=== PATIENT | female | born 2000 | race African-American/Black ===

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

== ENCOUNTER 2018-02-18 21:02 | Emergency (ER) | payer OTHER ==
[2018-02-18] MEDS ORDERED: AMOXicillin 250 MG CAP ONE (22:06)
[2018-02-18] MEDS ORDERED: Loratadine 10 MG TAB ONE (22:07)
== END 2018-02-18 22:20 | disposition home or self-care (01) ==
LOC: MADERS 21:02
DX: O99.512 Diseases of the respiratory system complicating pregnancy, second trimester (principal); J20.9 Acute bronchitis, unspecified; O99.712 Diseases of the skin and subcutaneous tissue complicating pregnancy, second trimester; L60.0 Ingrowing nail; Z3A.24 24 weeks gestation of pregnancy
CPT/HCPCS: 99283

== ENCOUNTER 2018-06-06 12:44 | Emergency (ER) | payer OTHER | END 2018-06-06 13:49 | disposition home or self-care (01) | LOC: MADERS 12:44 | DX: O46.93 Antepartum hemorrhage, unspecified, third trimester (principal); Z3A.39 39 weeks gestation of pregnancy | CPT/HCPCS: 99283 ==

== ENCOUNTER 2018-09-05 06:40 | Emergency (ER) | payer OTHER | END 2018-09-05 07:40 | disposition home or self-care (01) | LOC: MADERS 06:40 | DX: R11.0 Nausea (principal) | CPT/HCPCS: 99283 ==

== ENCOUNTER 2019-07-25 18:32 | Emergency (ER) | payer MEDICAID | END 2019-07-25 19:32 | disposition home or self-care (01) | LOC: MADERS 18:32 | DX: N94.6 Dysmenorrhea, unspecified (principal) | CPT/HCPCS: 99283 ==

== ENCOUNTER 2023-10-02 14:31 | Emergency (ER) | payer MEDICAID, SELFPAY | END 2023-10-02 16:19 | disposition home or self-care (01) | LOC: MADERS 14:31 | DX: J02.0 Streptococcal pharyngitis (principal) | CPT/HCPCS: 87430; 99283 ==

== ENCOUNTER 2023-12-15 07:39 | Emergency (ER) | payer SELFPAY ==
[2023-12-15 09:27] LABS: Influenza A by NAA Not Detected (NotDetected); Influenza B by NAA Not Detected (NotDetected); SARS-CoV-2 NAA Rapid Test DETECTED (NotDetected)
== END 2023-12-15 09:56 | disposition home or self-care (01) ==
LOC: MADERS 07:39
DX: U07.1 COVID-19 (principal); F17.290 Nicotine dependence, other tobacco product, uncomplicated
CPT/HCPCS: 99283